=== PATIENT | female | born 1965 | race Caucasian/White ===

== ENCOUNTER 2016-10-16 13:08 | Emergency (ER) | payer OTHER ==
[2016-10-16] MEDS ORDERED: BENZONATATE 100 MG CAPSULE PO STA (13:47)
[2016-10-16] MEDS ORDERED: ALBUTEROL NEB 2.5 MG/3 ML INH STA (13:47)
--- NOTE | 2016-10-16 13:50 | ED Physician Documentation ---
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 for a few days, green sputum, some wheezing no fever NVD recently in [place] for 5 weeks Review of Systems Constitutional: denies: Fever, Chills Respiratory: reports: Cough, Wheezing Musculoskeletal: denies: Extremity swelling PD PAST MEDICAL HISTORY - Past Medical History Past Medical History: Yes HEENT: Chronic hearing loss Other Past Medical History: chronic pain - Past Surgical History Past Surgical History: Yes - Present Medications Home Medications: Ambulatory Orders Medication Instructions Recorded Confirmed Albuterol Sulfate [Proair Hfa 2 puffs INH Q4H PRN #1 inhaler 10/16/16 Inhaler] Benzonatate [Tessalon] 100 mg PO TID PRN #20 capsule 10/16/16 HYDROcod/ACETAM 5/325 [Burns 5/325] 1 tab ORAL PRN PRN 10/16/16 10/16/16 - Allergies Allergies/Adverse Reactions: Allergies Allergy/AdvReac Type Severity Reaction Status Date / Time No Known Drug Allergies Allergy Verified 10/16/16 13:16 - Social History Does the pt smoke?: No Smoking Status: Never smoker Does the pt drink ETOH?: No Does the pt have substance abuse?: No - Immunizations Immunizations are current?: Yes - POLST Patient has POLST: No PD ED PE NORMAL - Vitals Vital signs reviewed: Yes - Neck Neck: Supple, no meningeal sign - Cardiac Cardiac: RRR - Respiratory Respiratory: No respiratory distress, Other (LLL ronchi some occ faint wheezing) Results - Vitals Vitals: Vital Signs - 24 hr 10/16/16 10/16/16 10/16/16 13:11 14:14 14:32 Temperature 36.5 C Heart Rate 68 68 79 Respiratory 20 14 20 Rate Blood Pressure 109/71 115/54 L O2 Saturation 97 93 Oxygen O2 Source Room air - Rads (name of study) CXR Radiology: See rad report (neg) Departure - Departure Disposition: 01 Home, Self Care Clinical Impression: Bronchitis Condition: Good Instructions: ED Viral Syndrome Prescriptions: Albuterol Sulfate [Proair Hfa Inhaler] 2 puffs INH Q4H PRN #1 inhaler PRN Reason: Shortness Of Air/Wheezing Benzonatate [Tessalon] 100 mg PO TID PRN #20 capsule PRN Reason: to ease cough Comments: The xray is fine - no pneumonia I prescribed an inhaler you can use for any wheezing and cough medication
[2016-10-16] MEDS ORDERED: ALBUTEROL NEB 2.5 MG/3 ML INH ONE (13:59)
[2016-10-16] MEDS ORDERED: BENZONATATE 100 MG CAPSULE PO ONE (14:07)
[2016-10-16 14:33] VITALS: BP 115/54
--- NOTE | 2016-10-16 14:38 | XRAY Preliminary Report ---
Exam: XR Chest 2 View PA/LAT IMPRESSION: Normal 2-view chest radiography. [facility] SITE ID: [id number]
--- NOTE | 2016-10-16 14:49 | XRAY Report ---
EXAM: CHEST RADIOGRAPHY EXAM DATE: 10/16/2016 02:12 PM. CLINICAL HISTORY: Cough. Left lower lobe rhonchi. COMPARISON: None. TECHNIQUE: 2 views. FINDINGS: Lungs/Pleura: No focal opacities evident. No pleural effusion. No pneumothorax. Normal volumes. Mediastinum: Heart and mediastinal contours are unremarkable. Other: None. IMPRESSION: Normal 2-view chest radiography. [facility] Referring Provider Line: [phone] SITE ID: [id number]
== END 2016-10-16 15:41 | disposition home or self-care (01) ==
LOC: ED 13:08
DX: J40 Bronchitis, not specified as acute or chronic (principal)
CPT/HCPCS: 71020; 99283; A9270; J7613